=== PATIENT | female | born 1990 | race Hispanic/Latino ===

== ENCOUNTER 2017-04-23 18:58 | Emergency (ER) | payer SELFPAY ==
[2017-04-23] MEDS ORDERED: Acetaminophen 500 MG TAB ONE (19:43)
[2017-04-23 19:55] LABS: Bilirubin Negative (Negative); Blood, Urine Negative (Negative); Clarity CLEAR (Clear); Glucose, Urine (Dipstick) Negative (Negative); Leukocyte Moderate (Negative); Nitrite Negative (Negative); Protein, Urine (Dipstick) Negative (Neg-Trace); Specific Gravity, Urine 1.012 (1.002-1.036); Urobilinogen 0.2 mg/dL (0.2-1.0)
[2017-04-23 19:56] LABS: #Lymphocytes 1.2 thou/uL (1.20-3.40); #Monocytes 0.5 thou/uL (0.11-0.59); #Neutrophils 4.5 thou/uL (1.40-6.50); %Basophils 0.4 % (0.0-1.0); %Eosinophils 0.4 % (0.0-10.0); %Lymphocytes 19.7 % (21.0-51.0); %Monocytes 8.1 % (0.0-10.0); %Neutrophils 71.5 % (42.0-75.0); Hemoglobin 12.1 g/dL (12.0-16.0); Mean Corpuscular Hemoglobin 32.8 pg (27.0-31.0); Mean Corpuscular Volume 93.8 fl (81.0-99.0); Mean Platelet Volume 8.3 fL (7.4-10.4); Platelet Count 185 thou/uL (130-400); RBC Distribution Width 12.3 % (11.5-14.5); Red Blood Cell (RBC) Count 3.68 mill/uL (4.20-5.40); White Blood Cell (WBC) Count 6.3 thou/uL (4.8-10.8)
[2017-04-23 20:00] LABS: Bacteria/HPF 2+ HPF (None Seen); Hyaline Casts/LPF 0-3 HYALINE CAST LPF (0-3 Hyaline); Pathc Cast-AUWi Flag 0.13 (0-2.49); RBC/HPF 0-3 HPF (0-3); Squamous Epithelial 0-3 HPF (0-3)
[2017-04-23 20:19] LABS: ALT (SGPT) 39 U/L (8-55); AST (SGOT) 29 U/L (5-34); Albumin 4.1 g/dL (3.5-5.0); Alkaline Phosphatase 54 U/L (40-150); Anion Gap 8 mmol/L (10-20); BUN (Urea Nitrogen) 6 mg/dL (7.0-18.7); Bilirubin, Total 0.2 mg/dL (0.2-1.2); Calc. Creatinine Clearance 0 mL/min (70-130); Calcium 9.6 mg/dL (7.8-10.44); Carbon Dioxide 26 mmol/L (22-29); Chloride 107 mmol/L (98-107); Estimated GFR-MDRD Greater than 90; Globulin 3.2 g/dL (2.4-3.5); Glucose 86 mg/dL (70-105); Lipase 49 U/L (8-78); Potassium 3.5 mmol/L (3.5-5.1); Protein, Total 7.3 g/dL (6.0-8.3); Sodium 137 mmol/L (136-145)
[2017-04-23] MEDS ORDERED: Lidocaine 1% PF 5 ML VIAL FS SCH (21:15)
[2017-04-23] MEDS ORDERED: cefTRIAXone\\ROCEPHIN 1 GM VIAL IM SCH (21:15)
--- NOTE | 2017-04-23 22:38 | ULT ---
OB ULTRASOUND 04/23/17 A limited OB ultrasound was performed. INDICATIONS: Left lower quadrant pain in an 18 week . FINDINGS: A single viable intrauterine is identified. Gestational age by ultrasound is 18 weeks, 5 da ys. Biometry measurements are consistent as noted below. BPD: 18 week, 5 day HC: 18 week, 5 day AC: 19 week, 2 day FL: 18 week, 2 day heart rate: 149 Position: Transverse Placenta: Posterior Amniotic fluid: Within normal range. Cervical length: 4.3 cm. Limited anatomy evaluation appears within normal range. Four chamber heart, stomach, kidneys, and alla dder were imaged. Technologist described normal motion. IMPRESSION: 18 week, 5 day gestation. No abnormality identified. POS: [facility]
== END 2017-04-23 23:40 | disposition home or self-care (01) ==
LOC: ERS 18:58
DX: O23.42 Unspecified infection of urinary tract in pregnancy, second trimester (principal); Z3A.18 18 weeks gestation of pregnancy
CPT/HCPCS: 36415; 76815; 80053; 81003; 81015; 83690; 84702; 85025; 86900; 86901; 87086; 96372; J0696; J2001